=== PATIENT | female | born 1995 | race Asian ===

== ENCOUNTER 2021-03-12 13:47 | Emergency (ER) | payer OTHER, SELFPAY ==
[2021-03-12 13:48] VITALS: BP 126/87; PULSE 79; RESP 16; TEMP 36.4; O2SAT 96; BMI 24.8
--- NOTE | 2021-03-12 14:18 | EDS_ITS ---
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 They tell me that she has called 911 a couple times. She they tell me she will not let them in the house. They state that she wants to go to [place] and was brought [place] the [place] from the [facility] against her will. She states that she l evie with her father she does have a brother in town. She tells me where the father works. Apparently the police have been unable to contact the brother or the father. Police state that there does not appear to be any medical emergency going on but they do not know what to do with her. Reportedly she has had some services in the past with [facility] but not recently. Patient tells me that she does not take any medications. She states that she did not eat today. She tells me she is not having any pain and feels pretty much at her normal self. [facility] Medical History Autism Borderline developmental delay Social phobia Home Medications No Known/Unobtainable [No Known Home Medications] 08/10/15 [History Last Taken Unknown] Allergy/AdvReac Type Severity Reaction Status Date / Time No Known Allergies Allergy Verified 06/06/17 04:50 Social History (Updated 03/12/21 @ 14:[address] Keith Puentes DO) Smoking Status: Never smoker substance use type: does not use ROS ROS ED Constitutional Constitutional ED: Denies chills or weight loss Eyes Eyes: Denies change in vision or diplopia ENT ENT ED: Denies ear pain, rhinorrhea or sore throat Cardiovascular Cardiovascular: Denies chest pain, orthopnea, palpitations or racing heartbeat Respiratory/Chest Respiratory/Chest: Denies cough, dyspnea or orthopnea Gastrointestinal Gastrointestinal: Denies abdominal pain, diarrhea, nausea or vomiting Genitourinary Genitourinary ED: Denies dysuria, hematuria or urinary frequency Musculoskeletal Musculoskeletal: Denies arthralgias or myalgias Integumentary Denies abscess or rash Neurologic Neurologic: Denies headache(s) or weakness Psychiatric Psychiatric: Denies anxiety, depression, suicidal ideation or suicidal thoughts Endocrine Endocrinology: Denies polydipsia, polyphagia or polyuria Allergic/Immunologic Allergic/Immunologic ED: Denies mouth swelling, tongue swelling or urticaria EXAM Physical Exam Const Vital Signs: 03/12/21 13:48 Temperature 97.5 F L Temperature Source Temporal Pulse Rate 79 Respiratory Rate 16 Blood Pressure 126/87 H Blood Pressure Mean 100 Pulse Ox 96 Oxygen Delivery Method Room Air Positive well nourished and well developed General Appearance ED: well developed HEENT Reports normocephalic, head/scalp atraumatic and moist mucous membranes Eyes PERRL and EOMs intact bilaterally Neck no lymphadenopathy, supple and no JVD Resp normal respiratory effort and clear to auscultation bilaterally Cardio regular rate, regular rhythm and no murmurs GI normal to inspection, nondistended, normoactive bowel sounds and non-tender Palpation: soft Back/Spine no CVA tenderness and normal ROM Extremity normal to inspection General Extremety ED: Negative for edema General Extremity: Negative for edema Neuro CN's II-XII intact bilaterally Sensorium / Orientation: alert, oriented to person and oriented to place Motor Exam: strength 5/5 throughout Psych Mood & Affect: Negative for depressed or tearful Skin no rashes or lesions noted and no wounds MDM MDM MDM Narrative Medical decision making narrative: Please were able to get a hold of her father as well as brother. Brother has come to the emergency department and states that this is her baseline. We are trying to figure out what they can do with her during the day and try to get her connected with services. Social work has been involved in her care here in the ED. the brother did get a call from the [employer] offering services. We are going to update her medical records with her brothers name and number. The patient does not currently have a primary care provider will provide a name for them to call Discharge Plan Triage Chief Complaint: Mental Health ED Provider: Keith Puentes Dx/Rx/DC Orders Clinical Impression: Autism Prescriptions: No Action No Known Home Medications RF: 0 Primary Care Provider: Care Physician,No Primary Referrals: Ana Ramos MD [STAFF PHYSICIAN] - As Needed (For Primary Care) Care Physician,No Primary [Primary Care Provider] - Disposition Disposition: Home, Self Care
--- NOTE | 2021-03-12 22:50 | CM.ED ---
KB Note KB Referral :RN Reason for Referral: Resources KB met with patient and her brother. Patient, per brother, is linked with the Board of DD. Patient has been diagnosed with autism. Patient's brother said that the Board of DD is working on place for patient to be during the day. SW asked about any other needs and brother said psychiatry. [facility] SW explained that this radio news writer could call the [facility] for appointment. SW spoke to [facility] in intake. She said that this radio news writer needs to speak to clerical receptionist. Patient has no open case and needs diagnostic assessment. Subassembly Supervisor, Johnie, said that she needs SSN to complete the appointment schedule. KB spoke to brother and he said that patient has a SSN but it at home. Brother indicated he would be able to call counseling center. SW provided him with handout on the crisis team phone number. Brother said this is gold . No other issues or needs identified. Plan: Home with resources [facility]
== END 2021-03-12 15:33 | disposition home or self-care (01) ==
PROVIDERS: Emergency Provider Emergency Medicine
DX: F84.0 Autistic disorder (principal)
CPT/HCPCS: 99282

== ENCOUNTER → 2021-03-20 13:33 | Outpatient (CLI) | payer OTHER, SELFPAY ==
[2021-03-20 15:40] LABS: Absolute Lymphocyte Count 1.71 X10^3/uL (0.83-4.51); Absolute Neutrophil Count 5.7 X10^3/uL (2.0-7.7); Basophil# 0.04 X10^3/uL; Basophil% 0.5 % (0-1); Eosinophil# 0.08 X10^3/uL; Hematocrit 42.4 % (37-47); Hemoglobin 13.5 g/dL (12.0-15.0); Lymphocyte # 1.71 X10^3/ul (0.83-4.51); Lymphocyte % 21.6 % (19-41); Mean Corp Hgb Conc 31.8 g/dL (32-36); Mean Corpuscular Hgb 29.3 pg (27.0-32.0); Mean Platelet Vol. 10.1 fl (6.2-12.0); Monocyte# 0.36 X10^3/uL; Monocyte% 4.6 % (0-10); NRBC Flagged by Analyzer 0 % (0-5); Platelet Count 375 K/mm3 (150-450); RBC Distribution Width CV 14.1 % (11.6-14.6); RBC Distribution Width SD 47.5 fl (35.1-43.9); Red Blood Count 4.61 M/mm3 (4.2-5.4); White Blood Count 7.9 K/mm3 (4.4-11.0)
[2021-03-20 16:17] LABS: AST(SGOT) 15 U/L (15-37); Alanine Aminotransfer ALT/SGPT 25 U/L (13-56); Alkaline Phosphatase 84 U/L (45-117); Anion Gap 5 (5-15); BUN 7 mg/dL (7-18); BUN/Creat Ratio 10.6 RATIO (10-20); Chloride 106 mmol/L (98-107); Creatinine, Serum 0.66 mg/dL (0.55-1.02); EST Glomerular Filtration Rate 118 mL/min (>60); Est Glom Filt Rate - Afr Amer 143 mL/min (>60); Globulin 4.1 g/dL (2.2-4.2); Glucose 97 mg/dL (74-106); Potassium 3.5 mmol/L (3.5-5.1); Protein, Total 8.1 g/dL (6.4-8.2); Sodium Level 142 mmol/L (136-145); T4 Free Direct 1.04 ng/dL (0.76-1.46); Thyroid Stim Hormone (TSH) 1.25 uIU/mL (0.358-3.74)
== END ==
PROVIDERS: PCP Internal Medicine; Referring Provider Internal Medicine; Visit Provider Internal Medicine
DX: F31.9 Bipolar disorder, unspecified (principal); F41.9 Anxiety disorder, unspecified
CPT/HCPCS: 36415; 80053; 84439; 84443; 85025

== ENCOUNTER → 2021-04-19 15:30 | Outpatient (CLI) | payer OTHER, SELFPAY ==
[2021-04-19 16:42] LABS: Absolute Lymphocyte Count 1.78 X10^3/uL (0.83-4.51); Absolute Neutrophil Count 6.3 X10^3/uL (2.0-7.7); Basophil# 0.05 X10^3/uL; Basophil% 0.6 % (0-1); Eosinophils% 2.3 % (0-5); Hematocrit 39.8 % (37-47); Hemoglobin 13.1 g/dL (12.0-15.0); Lymphocyte # 1.78 X10^3/ul (0.83-4.51); Lymphocyte % 20.4 % (19-41); Mean Corp Hgb Conc 32.9 g/dL (32-36); Mean Corpuscular Volume 91.1 fL (81-99); Mean Platelet Vol. 9.5 fl (6.2-12.0); Monocyte# 0.35 X10^3/uL; NRBC Flagged by Analyzer 0 % (0-5); Neutrophil # 6.31 X10^3/uL (2.7-7.7); Neutrophil % 72.4 % (47-70); Platelet Count 370 K/mm3 (150-450); RBC Distribution Width CV 14.1 % (11.6-14.6); RBC Distribution Width SD 47.6 fl (35.1-43.9); Red Blood Count 4.37 M/mm3 (4.2-5.4); White Blood Count 8.7 K/mm3 (4.4-11.0)
== END ==
PROVIDERS: PCP Internal Medicine; Referring Provider Internal Medicine; Visit Provider Internal Medicine
DX: F31.9 Bipolar disorder, unspecified (principal); F41.9 Anxiety disorder, unspecified
CPT/HCPCS: 36415; 85025

== ENCOUNTER → 2021-09-30 | Outpatient (CLI) | payer OTHER, SELFPAY ==
[2021-09-30 12:18] LABS: Absolute Lymphocyte Count 1.95 X10^3/uL (0.83-4.51); Absolute Neutrophil Count 4.3 X10^3/uL (2.0-7.7); Basophil# 0.05 X10^3/uL; Basophil% 0.7 % (0-1); Eosinophil# 0.09 X10^3/uL; Eosinophils% 1.3 % (0-5); Hematocrit 40.5 % (37-47); Lymphocyte # 1.95 X10^3/ul (0.83-4.51); Lymphocyte % 28.6 % (19-41); Mean Corp Hgb Conc 32.1 g/dL (32-36); Mean Corpuscular Hgb 29.4 pg (27.0-32.0); Mean Corpuscular Volume 91.6 fL (81-99); Mean Platelet Vol. 9.5 fl (6.2-12.0); Monocyte# 0.39 X10^3/uL; Monocyte% 5.7 % (0-10); NRBC Flagged by Analyzer 0 % (0-5); Neutrophil # 4.33 X10^3/uL (2.7-7.7); Neutrophil % 63.4 % (47-70); Platelet Count 337 K/mm3 (150-450); RBC Distribution Width CV 14.1 % (11.6-14.6); RBC Distribution Width SD 47.6 fl (35.1-43.9); Red Blood Count 4.42 M/mm3 (4.2-5.4); White Blood Count 6.8 K/mm3 (4.4-11.0)
[2021-09-30 12:52] LABS: AST(SGOT) 13 U/L (15-37); Alanine Aminotransfer ALT/SGPT 25 U/L (13-56); Alkaline Phosphatase 81 U/L (45-117); Anion Gap 5 (5-15); BUN 9 mg/dL (7-18); BUN/Creat Ratio 15.5 RATIO (10-20); Calcium,Total 9.3 mg/dL (8.5-10.1); Chloride 106 mmol/L (98-107); Creatinine, Serum 0.58 mg/dL (0.55-1.02); EST Glomerular Filtration Rate 136 mL/min (>60); Est Glom Filt Rate - Afr Amer 165 mL/min (>60); Globulin 3.9 g/dL (2.2-4.2); Glucose 86 mg/dL (74-106); Potassium 4.2 mmol/L (3.5-5.1); Protein, Total 7.9 g/dL (6.4-8.2); Sodium Level 138 mmol/L (136-145)
== END | disposition home or self-care (01) ==
LOC: BIMLAB 11:26
PROVIDERS: PCP Internal Medicine; Referring Provider Internal Medicine; Visit Provider Internal Medicine
DX: F41.9 Anxiety disorder, unspecified (principal); F32.A Depression, unspecified; F84.0 Autistic disorder
CPT/HCPCS: 36415; 80053; 85025

== ENCOUNTER → 2022-04-07 | Outpatient (CLI) | payer OTHER, MEDICAID, SELFPAY ==
[2022-04-07 15:26] LABS: Absolute Lymphocyte Count 2.06 X10^3/uL (0.83-4.51); Absolute Neutrophil Count 5.7 X10^3/uL (2.0-7.7); Basophil# 0.04 X10^3/uL; Basophil% 0.5 % (0-1); Eosinophil# 0.06 X10^3/uL; Eosinophils% 0.7 % (0-5); Hematocrit 40.4 % (37-47); Hemoglobin 13.5 g/dL (12.0-15.0); Lymphocyte # 2.06 X10^3/ul (0.83-4.51); Lymphocyte % 24.8 % (19-41); Mean Corp Hgb Conc 33.4 g/dL (32-36); Mean Corpuscular Hgb 30.8 pg (27.0-32.0); Mean Corpuscular Volume 92.2 fL (81-99); Mean Platelet Vol. 9.4 fl (6.2-12.0); Monocyte# 0.37 X10^3/uL; Monocyte% 4.5 % (0-10); NRBC Flagged by Analyzer 0 % (0-5); Neutrophil # 5.74 X10^3/uL (2.7-7.7); Neutrophil % 69.1 % (47-70); Platelet Count 326 K/mm3 (150-450); RBC Distribution Width CV 13.7 % (11.6-14.6); RBC Distribution Width SD 46.8 fl (35.1-43.9); Red Blood Count 4.38 M/mm3 (4.2-5.4); White Blood Count 8.3 K/mm3 (4.4-11.0)
[2022-04-07 15:52] LABS: AST(SGOT) 10 U/L (15-37); Alanine Aminotransfer ALT/SGPT 27 U/L (13-56); Albumin, Serum 3.9 g/dL (3.2-5.0); Alkaline Phosphatase 85 U/L (45-117); Anion Gap 5 (5-15); BUN 6 mg/dL (7-18); BUN/Creat Ratio 7.5 RATIO (10-20); Chloride 105 mmol/L (98-107); Cholesterol 176 mg/dL (200); EST Glomerular Filtration Rate 93 mL/min (>60); Est Glom Filt Rate - Afr Amer 112 mL/min (>60); Globulin 3.9 g/dL (2.2-4.2); Glucose 165 mg/dL (74-106); High Density Lipoprotein 65 mg/dL; Potassium 3.7 mmol/L (3.5-5.1); Protein, Total 7.8 g/dL (6.4-8.2); Sodium Level 139 mmol/L (136-145); Triglycerides 46 mg/dL; Very Low Density Lipoprotein 9 mg/dL (5-40)
[2022-04-08 11:55] LABS: Hemoglobin A1c 5.2 % (3.8-5.6)
== END | disposition home or self-care (01) ==
LOC: BIMLAB 13:31
PROVIDERS: PCP Internal Medicine; Referring Provider Internal Medicine; Visit Provider Internal Medicine
DX: R73.09 Other abnormal glucose (principal); F31.9 Bipolar disorder, unspecified; E66.3 Overweight; Z68.25 Body mass index [BMI] 25.0-25.9, adult
CPT/HCPCS: 36415; 80053; 80061; 83036; 85025

== ENCOUNTER → 2022-08-25 | Outpatient (CLI) | payer OTHER, MEDICAID, SELFPAY ==
[2022-08-25 15:15] LABS: Progesterone Level 1.34 ng/mL (See Comment); Vitamin D,25 Hydroxy 31.6 ng/mL
[2022-08-25 15:21] LABS: Follicle Stimulating Hormone 5.8 mIU/mL; Free T3 2.2 pg/mL (2.18-3.98); Luteinizing Hormone 10.7 mIU/mL; Prolactin 99.4 ng/mL; T4 Free Direct 0.82 ng/dL (0.76-1.46); Thyroid Stim Hormone (TSH) 1.66 uIU/mL (0.358-3.74)
[2022-09-03 13:18] LABS: Testosterone, % Free 3.03 % (0.50-2.80); Testosterone, Free 1.79 ng/dL (0.10-0.85); Testosterone, Total 59 ng/dL (13-71)
[2022-09-03 14:11] LABS: Sex Hormone-binding Globulin 21.8 nmol/L (24.6-122.0)
== END | disposition home or self-care (01) ==
LOC: LAB 13:54
PROVIDERS: PCP Internal Medicine
DX: N92.6 Irregular menstruation, unspecified (principal); N64.3 Galactorrhea not associated with childbirth
CPT/HCPCS: 36415; 82306; 82533; 82627; 82670; 83001; 83002; 84144; 84146; 84270; 84402; 84403; 84439; 84443; 84481; 82626

== ENCOUNTER → 2022-09-09 | Outpatient (CLI) | payer OTHER, MEDICAID, SELFPAY ==
[2022-09-09 15:53] LABS: Bacteria 0 SEEN /hpf (None Seen); Mucous, Urine 0 SEEN /hpf (<or=2+); Red Blood Cells-Urine 0 SEEN /hpf (0-5); Squamous Epithelial Cells - UA 0 SEEN /hpf (5-10)
[2022-09-09 16:43] LABS: Color, Urine Yellow (Yellow); Glucose, Dipstick Normal (Normal); Ketone-Dipstick Negative (Negative); Leukocyte Esterase-Dipstick 25 /ul (Negative); Nitrite-Dipstick Negative (Negative); Occult Blood-Urine 10 /ul (Negative); Protein-Dipstick Negative (Negative); Urine Bilirubin Dipstick Negative (Negative); Urine Clarity Clear (Clear); Urine Urobilinogen Normal (Normal); Urine pH 6.5 (5.0 - 8.0)
[2022-09-09 16:54] LABS: White Blood Cells 0-5 SEEN /hpf (0-5)
== END | disposition home or self-care (01) ==
LOC: LABSPEC 15:41
PROVIDERS: PCP Internal Medicine; Referring Provider Internal Medicine; Visit Provider Internal Medicine
DX: R32 Unspecified urinary incontinence (principal)
CPT/HCPCS: 81001

== ENCOUNTER → 2022-10-11 | Outpatient (CLI) | payer OTHER, MEDICAID, SELFPAY ==
[2022-10-11 09:06] LABS: Anion Gap 5 (5-15); BUN 8 mg/dL (7-18); BUN/Creat Ratio 12.4 RATIO (10-20); Calcium,Total 8.9 mg/dL (8.5-10.1); Chloride 108 mmol/L (98-107); Creatinine, Serum 0.65 mg/dL (0.55-1.02); EST Glomerular Filtration Rate 119 mL/min (>60); Est Glom Filt Rate - Afr Amer 144 mL/min (>60); Glucose 103 mg/dL (74-106); Potassium 3.9 mmol/L (3.5-5.1); Sodium Level 141 mmol/L (136-145)
[2022-10-13 09:10] LABS: Vitamin D,25 Hydroxy 56.7 ng/mL
[2022-10-15 12:08] LABS: 17-Hydroxyprogesterone 14 ng/dL (.)
== END | disposition home or self-care (01) ==
LOC: MTLAB 08:13 → LAB 08:15
PROVIDERS: PCP Internal Medicine
DX: E55.9 Vitamin D deficiency, unspecified (principal); N92.6 Irregular menstruation, unspecified; E28.2 Polycystic ovarian syndrome
CPT/HCPCS: 36415; 80048; 82306; 83498

== ENCOUNTER → 2022-10-22 | Outpatient (CLI) | payer OTHER, MEDICAID, SELFPAY ==
--- NOTE | 2022-10-22 08:18 | MRI_ITS ---
INDICATION: HYPERPROLACTINEMIA -- PITUITARY EXAMINATION: MRI - MR Brain WO/W Contrast TECHNIQUE: Multiplanar and multisequence MR images of the brain were obtained without and with gadolinium. IV Contrast Dosage and Agent: 13 mL Clariscan COMPARISON: None. FINDINGS: BRAIN PARENCHYMA: No MRI evidence of hemorrhage. No evidence of acute infarct. No intracranial mass or mass effect. There is preservation of the craig/white matter interface. A 4 mm hypoenhancing nodule along the rightward aspect of the sella is only demonstrated on the contrast-enhanced thin coronal sequence (series 13, image 3). Otherwise normal sella turcica, pituitary gland, infundibular stalk, optic chiasm and hypothalamus. Posterior fossa structures are unremarkable. INTERNAL AUDITORY CANALS: Appear normal. CSF SPACES: Appropriate for age. No hydrocephalus. Basal cisterns are patent. VASCULAR SYSTEM: Normal flow voids in the major intracranial circulation. CALVARIUM, SKULL BASE, PARANASAL SINUSES AND MASTOID AIR CELLS: Right maxillary sinus mucosal thickening. ORBITS: Both globes, extraocular muscles, optic nerves and retrobulbar fat appear unremarkable. MRI/Brain W/WO Contrast IMPRESSION: 4 mm hypoenhancing nodule along the rightward pituitary is only seen on one sequence, which may be due to slice variation. This may represent a microadenoma. Electronically Signed: Ki Child MD at 22:56 EDT ,
== END | disposition home or self-care (01) ==
PROVIDERS: PCP Internal Medicine
DX: N92.6 Irregular menstruation, unspecified (principal); N64.3 Galactorrhea not associated with childbirth
CPT/HCPCS: 70553; A9575

== ENCOUNTER → 2022-10-31 | Outpatient (CLI) | payer OTHER, MEDICAID, SELFPAY ==
[2022-10-31 08:22] LABS: Glucose 75GTT - 30 minutes 137 mg/dL (100-160)
[2022-10-31 08:26] LABS: Glucose 75GTT - Fasting 90 mg/dL (70-99)
[2022-10-31 08:31] LABS: Insulin 75GTT - Fasting 5.9 mU/L (2.6-37.6)
[2022-10-31 08:31] LABS: Insulin 75GTT - 30 MIN 41.6 mU/L (Not Estab.)
[2022-10-31 08:55] LABS: Glucose 75GTT - 60 minutes 141 mg/dL (100-160)
[2022-10-31 09:05] LABS: Insulin 75GTT - 60 min 49.4 mU/L (Not Estab)
[2022-10-31 10:25] LABS: Glucose 75GTT - 120 minutes 119 mg/dL (70-140)
[2022-10-31 10:34] LABS: Insulin 75GTT - 120 min 72.5 mU/L (Not Estab.)
== END | disposition home or self-care (01) ==
PROVIDERS: PCP Internal Medicine
DX: N92.6 Irregular menstruation, unspecified (principal); E28.2 Polycystic ovarian syndrome
CPT/HCPCS: 36415; 82951; 82952; 83525

== ENCOUNTER → 2022-11-08 | Outpatient (CLI) | payer OTHER, MEDICAID, SELFPAY ==
[2022-11-08 10:15] LABS: Bacteria 0 SEEN /hpf (None Seen); Mucous, Urine 0 SEEN /hpf (<or=2+); Squamous Epithelial Cells - UA 0 SEEN /hpf (5-10); White Blood Cells 0 SEEN /hpf (0-5)
[2022-11-08 11:18] LABS: Color, Urine Yellow (Yellow); Glucose, Dipstick Normal (Normal); Ketone-Dipstick Negative (Negative); Leukocyte Esterase-Dipstick Negative /ul (Negative); Nitrite-Dipstick Negative (Negative); Occult Blood-Urine 250 /ul (Negative); Protein-Dipstick Negative (Negative); Urine Bilirubin Dipstick Negative (Negative); Urine Clarity Clear (Clear); Urine Urobilinogen Normal (Normal)
[2022-11-08 11:48] LABS: Red Blood Cells-Urine 0-5 SEEN /hpf (0-5)
== END | disposition home or self-care (01) ==
LOC: LAB 10:12
PROVIDERS: PCP Internal Medicine; Referring Provider Internal Medicine; Visit Provider Internal Medicine
DX: R32 Unspecified urinary incontinence (principal)
CPT/HCPCS: 81001; 87086; 87088

== ENCOUNTER → 2023-01-17 | Outpatient (CLI) | payer OTHER, MEDICAID, SELFPAY ==
[2023-01-17 11:59] LABS: Thyroid Stim Hormone (TSH) 1.79 uIU/mL (0.358-3.74)
[2023-01-17 13:35] LABS: Procalcitonin < 0.04 ng/mL (0.00-0.09)
== END | disposition home or self-care (01) ==
LOC: LAB 11:03
PROVIDERS: PCP Internal Medicine
DX: E22.9 Hyperfunction of pituitary gland, unspecified (principal); D35.2 Benign neoplasm of pituitary gland; E88.81 Metabolic syndrome and other insulin resistance
CPT/HCPCS: 36415; 82627; 84145; 84443; 82626

== ENCOUNTER → 2023-01-31 | Outpatient (CLI) | payer OTHER, MEDICAID, SELFPAY ==
[2023-01-31 12:43] LABS: Prolactin 71.8 ng/mL
== END | disposition home or self-care (01) ==
LOC: LAB 11:17
PROVIDERS: PCP Internal Medicine
DX: E22.1 Hyperprolactinemia (principal)
CPT/HCPCS: 36415; 84146

== ENCOUNTER → 2023-04-15 | Outpatient (CLI) | payer OTHER, MEDICAID, SELFPAY ==
[2023-04-15 15:56] LABS: Absolute Lymphocyte Count 2.26 X10^3/uL (0.83-4.51); Absolute Neutrophil Count 7.8 X10^3/uL (2.0-7.7); Basophil# 0.05 X10^3/uL; Basophil% 0.5 % (0-1); Eosinophil# 0.17 X10^3/uL; Eosinophils% 1.6 % (0-5); Hematocrit 39.7 % (37-47); Hemoglobin 12.9 g/dL (12.0-15.0); Lymphocyte # 2.26 X10^3/ul (0.83-4.51); Lymphocyte % 20.9 % (19-41); Mean Corp Hgb Conc 32.5 g/dL (32-36); Mean Corpuscular Hgb 30.2 pg (27.0-32.0); Mean Platelet Vol. 9.3 fl (6.2-12.0); Monocyte# 0.53 X10^3/uL; Monocyte% 4.9 % (0-10); NRBC Flagged by Analyzer 0 % (0-5); Neutrophil # 7.76 X10^3/uL (2.7-7.7); Neutrophil % 71.7 % (47-70); Platelet Count 351 K/mm3 (150-450); RBC Distribution Width CV 13.5 % (11.6-14.6); Red Blood Count 4.27 M/mm3 (4.2-5.4); White Blood Count 10.8 K/mm3 (4.4-11.0)
[2023-04-15 16:28] LABS: ALB/GLOB Ratio 0.9 RATIO (0.9-2.4); AST(SGOT) 22 U/L (15-37); Alanine Aminotransfer ALT/SGPT 57 U/L (13-56); Albumin, Serum 3.6 g/dL (3.2-5.0); Alkaline Phosphatase 83 U/L (45-117); Anion Gap 8 (5-15); BUN 11 mg/dL (7-18); BUN/Creat Ratio 17.8 RATIO (10-20); Calcium,Total 8.8 mg/dL (8.5-10.1); Chloride 104 mmol/L (98-107); Creatinine, Serum 0.62 mg/dL (0.55-1.02); EST Glomerular Filtration Rate 125 mL/min (>60); Est Glom Filt Rate - Afr Amer 151 mL/min (>60); Globulin 4.1 g/dL (2.2-4.2); Glucose 95 mg/dL (74-106); Potassium 3.9 mmol/L (3.5-5.1); Protein, Total 7.7 g/dL (6.4-8.2); Sodium Level 142 mmol/L (136-145)
== END | disposition home or self-care (01) ==
LOC: LAB 14:48
PROVIDERS: PCP Internal Medicine; Visit Provider Internal Medicine
DX: F41.9 Anxiety disorder, unspecified (principal); F32.A Depression, unspecified
CPT/HCPCS: 36415; 80053; 85025

== ENCOUNTER → 2023-05-29 | Outpatient (CLI) | payer OTHER, MEDICAID, SELFPAY ==
--- OUTSIDE RECORDS SUMMARY | 2023-05-29 15:06 | XMS RPT_ITS | CCD ---
Author Name Unknown Address [address] [facility] [address] [place] [address] Organization [facility] Care Team Providers Care Drafter Electronic Name Role Phone Unavailable Primary Care Provider Unavailabl e Problems Problem Classification Problem Date Documented Da te Episodic/Chronic Disorders usually diagnosed in infancy, childhood, or adolescence (1 source) Autistic disorder; Translations: [Autistic disorder] 02-14-2015 Chronic Results Test Name Value Interpretation Reference Range Facil ity Encounters Encounter Date Encounter Type Care Provider Facility Start: 11-13-2021 Telephone encounter Lorenzo lopez [employer]ATELLITE [employer] INSTALLER Work Phone: Psychology Procedures Date Procedure Procedure Detail Performing Clinician Start: 12-07-2020 Adult depression screening assessment Lorenzo French [employer] IN[employer] Work Phone: Plan of Treatment Date Care Activity Detail Author Start: 01-30-2022 Influenza vaccination INFLUENZA (Sea son Ended) [facility] Start: 12-07-2021 Adult depression scr eening assessment DEPRESSION SCREENING [facility] Start: 03-06-2021 COVID-19 VACCINE (3 - Booster for Moderna series) COVID-19 VACCINE (3 - Booster for Moderna series) [facility] Start: 02-12-2020 Urine microalbumin profile DTA P,TDAP,TD (6 - Td or Tdap) [facility] Start: 2018 PAP TESTING PAP TESTING [facility] Start: 06-19-2016 HPV VACCINE (3 - 3-d ose series) HPV VACCINE (3 - 3-dose series) [facility] Start: 10-11-2011 PEDS TO ADULT TRANSI TION ANNUAL ASSESSMENT PEDS TO ADULT TRANSITION ANNUAL ASSESSMENT [facility] Start: 2009 PEDS TO ADULT TRANSI TION INITIAL DISCUSSION PEDS TO ADULT TRANSITION INITIAL DISCUSSION [facility] Start: 10-11-2007 MENINGOCOCCAL B: Con model and mold maker based on risk (1 of 2 - Risk Bexsero 2-dose series) MENINGOCOCCAL B: Consider based on risk (1 of 2 - Risk Bexsero 2-dose series) [facility] Immunizations Immunization Date Immunization Notes Care Provider Inés ron 10-04-2020 COVID-19 vaccine, fu ll dose (MODERNA) Lorenzo Gillian [employer] Work Phone: [facility] Work Phone: 09-06-2020 COVID-19 vaccine, fu ll dose (MODERNA) Lorenzo Gillian [employer] INST[employer] Work Phone: [facility] Work Phone: 04-04-2017 influenza, injectabl e, quadrivalent, contains preservative Lorenzo Gillian [employer] INSTALLER Work Phone: [facility] Work Phone: 02-18-2016 Human Papillomavirus 9-valent vaccine Lorenzo Gillian [employer] INST[employer] Work Phone: [facility] 02-18-2016 influenza, injectabl e, quadrivalent, contains preservative Lorenzo Gillian [employer] INST[employer]ER Work Phone: [facility] 02-14-2015 Human Papillomavirus 9-valent vaccine Lorenzo Gillian [employer] INSTALLER Work Phone: [facility] 02-14-2015 influenza, injectabl e, quadrivalent, preservative free Lorenzo Gillian [employer] INSTALLER Work Phone: [facility] 02-14-2015 meningococcal polysaccharide (groups A, C, Y and W-135) diphtheria toxoid conjugate vaccine (MCV4P) Lorenzo Gillian [employer] INSTALLER Work Phone: [facility] 02-11-2010 tetanus toxoid, redu ernst diphtheria toxoid, and acellular pertussis vaccine, adsorbed Lorenzo Gillian [employer] INSTALLER Work Phone: [facility] 07-14-2007 hepatitis A vaccine, pediatric/adolescent dosage, 2 dose schedule Lorenzo Gillian [employer]ITE [employer] INSTALLER Work Phone: [facility] Work Phone: 04-14-2007 varicella virus vaccine Kimber nce Gillian [employer] INSTALLER Work Phone: [facility] Work Phone: 01-08-2007 hepatitis A vaccine, unspecified formulation Lorenzo Gillian [employer] INSTALLER Work Phone: [facility] Work Phone: 01-08-2007 measles, mumps and rubella virus vaccine Lorenzo Gillian [employer] INSTALLER Work Phone: [facility] Work Phone: 01-08-2007 measles, mumps, rube lla, and varicella virus vaccine Lorenzo Gillian [employer] INSTALLER Work Phone: [facility] Work Phone: 01-08-2007 varicella virus vaccine Kimber nce Gillian [employer] INSTALLER Work Phone: [facility] Work Phone: 10-22-2002 diphtheria, tetanus toxoids and acellular pertussis vaccine Lorenzo Gillian [employer]ATELL[employer] TV INSTALLER Work Phone: [facility] Work Phone: 10-22-2002 trivalent poliovirus vaccine, live, oral Lorenzo Gillian [employer] INSTALLER Work Phone: [facility] Work Phone: 02-04-1999 measles, mumps and rubella virus vaccine Lorenzo Gillian [employer]LL[employer] INSTALLER Work Phone: [facility] Work Phone: 01-04-1999 haemophilus influenz ae type b vaccine, HbOC conjugate Lorenzo Gillian [employer] INSTALLER Work Phone: [facility] Work Phone: 09-27-1998 hepatitis B vaccine, pediatric or pediatric/adolescent dosage Lorenzo Gillian [employer] INSTALLER Work Phone: [facility] Work Phone: 05-17-1998 hepatitis B vaccine, pediatric or pediatric/adolescent dosage Lorenzo Gillian [employer]LLITE TV INSTALLER Work Phone: [facility] Work Phone: 04-12-1998 hepatitis B vaccine, pediatric or pediatric/adolescent dosage Lorenzo Gillian [employer]ATELLITE TV INSTALLER Work Phone: [facility] Work Phone: 02-15-1998 diphtheria, tetanus toxoids and acellular pertussis vaccine Lorenzo Gillian [employer] INSTALLER Work Phone: [facility] Work Phone: 02-15-1998 trivalent poliovirus vaccine, live, oral Lorenzo Gillian [employer] INSTALLER Work Phone: [facility] Work Phone: 01-15-1998 diphtheria, tetanus toxoids and acellular pertussis vaccine Lorenzo Gillian [employer]LL[employer] TV INSTALLER Work Phone: [facility] Work Phone: 01-15-1998 trivalent poliovirus vaccine, live, oral Lorenzo Gillian [employer] TV INSTALLER Work Phone: [facility] Work Phone: 1997 diphtheria, tetanus toxoids and acellular pertussis vaccine Lorenzo Gillian SATELLITE TV INSTALLER Work Phone: [facility] Work Phone: 1997 trivalent poliovirus vaccine, live, oral Lorenzo Gillian [employer]ATELLITE TV INSTALLER Work Phone: [facility] Work Phone: Payers Date Payer Category Payer Unknown [facility] [id number] 2017-Present [phone] [place] [id number] [facility] [id number] Social History Date Type Detail Facility Tobacco smoking stat [facility] Never smoked tobacco [facility] Work Phone: Start: 12-07-2020 Alcohol intake Current non-dr key ringer of alcohol (finding) [facility] Start: 12-07-2020 History SDOH Alcohol Frequency 1 [facility] Start: 12-07-2020 History SDOH Social Connections Get Together 2 [facility] Start: 12-07-2020 History SDOH Social Connections Living 7 [facility] Start: 12-07-2020 History SDOH Physica l Activity DPW 0 [facility] Start: 12-07-2020 History SDOH Stress 4 [facility] Start: 12-07-2020 History SDOH Housing Unable to Pay 3 [facility] Start: 12-06-2020 Education 12 [facility] Start: 1997 Sex Assigned At Not on file [facility] Note 11-13-2021 Telephone Encounter - JOSEPH Simons - 11/13/2021 10:12 AM EDT Note Date & Type Note Facility 11-13-2021 Miscellaneous Notes Behavioral Health Social Work Progress Note Patient identified for [facility] from: (LALA Jauregui) Reason for referral: Resources Behavioral Health Resources: Psychiatry med management (h/o autism) [facility] encounter type: Telephone Encounter Attempts to Outreach: 4 attempts Referral made: Psychiatry - External Psychiatry-External referral type: Medication Management Reason for external referral: 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 left , 12-11-20 returned call to dino dior left , 11-13-21 returned call provided additional resources) Patient Discharged?: Yes Patient reported that caregiver was able to meet their needs today?: N/A Received a vm from dino -wanting to sched appt for Pt for autism [facility] contacted [facility] -who reported [facility] DD -has been on waiting list for months -wanting to sched with psych at [facility] -Pt now lives with another bro in [place] -has medicaid insurance -has PCP at [facility] informed dino of pop health model -Pt does not meet criteria -offered additional resources, [facility] D[facility] stated he will check into each -at work currenlty -thanked [facility] for info No further contact is indicated at this time JOSEPH Simons November 13, 2021 documented in this encounter [facility] Progress note 12-07-2020 Note Date & Type Note Facility 12-07-2020 Note HNO ID: [id number] Author: Marissa Garcia APRN.CITY DISPATCH SUPERVISOR Service: ? Author Type: Nurse Specialist Type: Progress Notes Filed: 12/07/2020 10:43 AM Note Text: SUBJECTIVE: MENINGOCOCCAL B: Consider based on risk(1 of 2 - Risk Bexsero 2-dose series) Never done GC (GONORRHEA) SCREENING (18-24) Never done HEPATITIS C SCREENING Never done HIV SCREENING Never done CHLAMYDIA SCREENING (18-24) Never done HPV VACCINE(3 - 3-dose series) due on 06/19/2016 PAP TESTING Never done HPI Dania Resendez is a 25 year old female. Former patient of [facility]. History of autism. She was last seen in 2015. She presents on her own today, limited verbalization during visit. Presents today stating she just needs a general exam. Recent physician:none reported since last seen here SHOP MECHANIC:none reported States she does not see psychiatry or other provider for autism. Notes she is not feeling depressed. Review of Systems Constitutional: Negative. Objective BP 112/68 Pulse 72 Resp 14 Ht 149.9 cm (4' 11 ) Wt 63.5 kg (140 lb) LMP 02/07/2015 BMI 28.28 kg/m? Physical Exam Vitals and nursing note reviewed. Constitutional: Appearance: Normal appearance. HENT: Head: Normocephalic and atraumatic. Eyes: Conjunctiva/sclera: Conjunctivae normal. Neck: Thyroid: No thyroid mass, thyromegaly or thyroid tenderness. Cardiovascular: Rate and Rhythm: Normal rate and regular rhythm. Pulses: Carotid pulses are 2+ on the right side and 2+ on the left side. Radial pulses are 2+ on the right side and 2+ on the left side. Heart sounds: Normal heart sounds. Pulmonary: Effort: Pulmonary effort is normal. Breath sounds: Normal breath sounds. Abdominal: General: Bowel sounds are normal. Palpations: Abdomen is soft. Musculoskeletal: Right lower leg: No edema. Left lower leg: No edema. Skin: General: Skin is warm and dry. Neurological: Mental Status: She is alert. Mental status is at baseline. ALLERGIES No Known Allergies No prescriptions on file. PAST MEDICAL HISTORY Diagnosis Date - Autism Diagnosis by [facility]. - Learning disability Social History Tobacco Use - Smoking status: Never Smoker - Smokeless tobacco: Never Used Substance Use Topics - Alcohol use: No - Drug use: No ASSESSMENT/PLAN: 1. Routine medical exam - ICD9: V70.0, ICD10: Z00.00 (primary diagnosis) - GC/CHLAMYDIA AMPLIF, URINE - HIV 1 2 COMBO(AG/AB),WITH REFLEX TO DIFFERENTIATION - HEP C AB IA W/CONF SCRN - CONSULT TO SHOP MECHANIC - BASIC METABOLIC PNL 2. Screening for HIV (human immunodeficiency virus) - ICD9: V73.89, ICD10: Z11.4 - HIV 1 2 COMBO(AG/AB),WITH REFLEX TO DIFFERENTIATION 3. Screening for hepatitis C declined - ICD9: , ICD10: Z53.20 4. Need for hepatitis C screening test - ICD9: V73.89, ICD10: Z11.59 - HEP C AB IA W/CONF SCRN 5. Well woman exam with routine gynecological exam - ICD9: V72.31, ICD10: Z01.419 6. Screening for chlamydial disease - ICD9: V73.98, ICD10: Z11.8 - GC/CHLAMYDIA AMPLIF, URINE 7. Screening for gonorrhea - ICD9: V74.5, ICD10: Z11.3 - GC/CHLAMYDIA AMPLIF, URINE 8. History of autism - ICD9: V11.8, ICD10: Z86.59 - CONSULT TO PSYCHIATRY - CONSULT TO PRIMARY [facility] BE[facility]IORAL HEALTH ADULT 9. Screening for diabetes mellitus - ICD9: V77.1, ICD10: Z13.1 - BASIC METABOLIC PNL Presents today for routine visit, last seen approximately 5 years ago. Limited verbalization. No significant other present during visit states she has not been seen recently by a provider. Routine health maintenance orders placed. Patient would like to establish care with her would recommend a follow-up visit in 6 to 12 months. Unclear what support services she has available to her or a news regarding autism. States she does live with her parents. Marissa Garcia APRN.[facility] Summary Purpose Family History No Family History Records Found Advance Directives No Advanced Directives Records Found Additional Source Comments Source Comments (unrecognize d section and content) In the event this informatio n is protected by the Federal Confidentiality of Alcohol and Drug Abuse Patient Records regulations: The Federal rules restrict any use of the information to criminally investigate or prosecute any alcohol or drug abuse patient.[facility] Reason for Visit (unrecogniz ed section and content) INFORMATION SOURCE (unrecogn ized section and content) FOR RECORDS PERTAINING TO PATIENTS WHO ARE OR HAVE BEEN ENROLLED IN A CHEMICAL DEPENDENCY/SUBSTANCEABUSE PROGRAM, SOME INFORMATION MAY BE OMITTED. This clinical summary was aggregated from multiple sources. Caution should be exercised in using it in the provision of clinical care. This summary normalizes information from multiple sources, and as a consequence, information in this document may materially change the coding, format and clinical context of patient data. In addition, data may be omitted in some cases. CLINICAL DECISIONS SHOULD BE BASED ON THE PRIMARY CLINICAL RECORDS. [facility]. provides no warranty or guarantee of the accuracy or completeness of information in this document.
[2023-05-29 16:55] LABS: Prolactin 0.7 ng/mL
== END | disposition home or self-care (01) ==
PROVIDERS: PCP Internal Medicine
DX: E22.1 Hyperprolactinemia (principal)
CPT/HCPCS: 36415; 84146

== ENCOUNTER → 2023-10-27 | Outpatient (CLI) | payer MEDICAID, SELFPAY | END | disposition home or self-care (01) | PROVIDERS: PCP Internal Medicine | DX: G47.10 Hypersomnia, unspecified (principal); G47.33 Obstructive sleep apnea (adult) (pediatric); F51.04 Psychophysiologic insomnia | CPT/HCPCS: 95810 ==

== ENCOUNTER → 2023-10-31 | Outpatient (CLI) | payer MEDICAID, SELFPAY ==
[2023-10-31 09:26] LABS: Follicle Stimulating Hormone 8.7 mIU/mL; Luteinizing Hormone 10.6 mIU/mL; Prolactin 2.2 ng/mL
== END | disposition home or self-care (01) ==
LOC: LAB 08:00
PROVIDERS: PCP Internal Medicine
DX: E22.1 Hyperprolactinemia (principal); E28.2 Polycystic ovarian syndrome
CPT/HCPCS: 36415; 82627; 83001; 83002; 84146; 82626